=== PATIENT | female | born 1995 | race Caucasian/White ===

== ENCOUNTER 2017-10-03 09:55 | Outpatient (CLI) | payer OTHER | END 2017-10-03 09:56 | disposition home or self-care (01) | LOC: CTENTCT 09:55 | PROVIDERS: ATTEND Otolaryngology Plastic Surgery within the Head & Neck | DX: J32.9 Chronic sinusitis, unspecified (principal) | CPT/HCPCS: 70486 ==

== ENCOUNTER 2017-11-06 09:00 | Day surgery (SDC) | payer OTHER ==
[2017-11-05 11:59] VITALS: BMI 21.8
[2017-11-06] MEDS ORDERED: Oxymetazoline HCl 0.05% ( 15 ML ) ONE ×2 (09:23→09:51)
[2017-11-06] MEDS ORDERED: Scopolamine 1.5 mg/72 hour Patch ONE (09:23)
[2017-11-06] MEDS ORDERED: Midazolam HCl 2 mg/2 ml Vial ONE ×2 (09:23→10:09)
[2017-11-06 09:32] LABS: Hematocrit 44.7 % (36.0-47.0)
[2017-11-06] MEDS ORDERED: Bacitracin Zinc Ointment 30 gm TUBE ONE (09:51)
[2017-11-06] MEDS ORDERED: Lidocaine 1% w/Epinephrine 1:200K 30 ML VIAL ONE (09:51)
[2017-11-06] MEDS ORDERED: Fentanyl 100 MCG/2 ML VIAL ONE (10:09)
[2017-11-06] MEDS ORDERED: methylPREDNISolone Acetate 40 mg/ml Vial ONE (10:30)
[2017-11-06] MEDS ORDERED: Ketorolac Tromethamine 30 MG/ML VIAL ONE (11:37)
--- NOTE | 2017-11-06 12:53 | OP ---
DATE OF PROCEDURE: 11/06/2017 PREOPERATIVE DIAGNOSES: 1. Chronic rhinosinusitis. 2. Bilateral middle turbinate dinah bullosa. 3. Bilateral inferior turbinate hypertrophy. 4. Chronic adenotonsillitis. 5. Adenotonsillar hypertrophy. POSTOPERATIVE DIAGNOSES: 1. Chronic rhinosinusitis. 2. Bilateral middle turbinate dinah bullosa. 3. Bilateral inferior turbinate hypertrophy. 4. Chronic adenotonsillitis. 5. Adenotonsillar hypertrophy. PROCEDURES PERFORMED: 1. Bilateral endoscopic sinus surgery, total ethmoidectomies. 2. Bilateral endoscopic sinus surgery, maxillary antrostomies. 3. Bilateral endoscopic sinus surgery, frontal sinusotomies. 4. Bilateral middle turbinate endoscopic resection of dinah bullosa. 5. Bilateral inferior turbinate submucosal resection. 6. Tonsillectomy and adenoidectomy. SURGEON: Dr. Hayden Ch. ESTIMATED BLOOD LOSS: 50 mL. COMPLICATIONS: None. ANESTHESIA: GETA. PROCEDURE IN DETAIL: Tonsillectomy and adenoidectomy: After consent was obtained, the patient was i dentified, brought to the operating room, and placed on the operating table in the supine position. General endotracheal anesthesia and intravenous access was obtained and we proceeded with positioning the patient for oropharyngeal surgery. Oropharyngeal exposure was obtained with a Ramo-Nirav mouth gag after a head drape was placed and secured with a towel clip. The Ramo-Nirav mouth gag was then suspended from the Churchill tray and palatal elevation was achieved with a red rubber catheter. The rig ht tonsil was addressed first. We used a curved Allis to grasp the tonsil and retract it medially as an anterior pillar incision was made. The retrotonsillar fascial plane was then established and tessa nt dissection was performed with the suction cautery. Blood vessels were anticipated, identified, an d cauterized as they were encountered. Ultimately, dissection was carried to the posterior tonsillar pillar mucosa which was incised hemostatically, as well as the base of tongue connection. The tonsi l was then passed off as a specimen and bleeding points within the tonsillar bed were cauterized unde r direct visualization. We subsequently turned our attention to the contralateral side, where using a similar technique, a near identical procedure was performed. Again, the tonsil was grasped and retr acted medially with a curved Allis. The retrotonsillar fascial plane was established and while the a nterior pillar was retracted medially, the hemostatic blunt dissection of the tonsil with a suction c autery was performed with blood vessels anticipated, identified, and cauterized as they were encount ered. Again, dissection continued to the base of tongue and posterior tonsillar pillar mucosa which was incised in a hemostatic fashion. The tonsillar beds were then carefully inspected and bleeding p oints were identified and cauterized with a suction cautery. After this portion of the procedure, he mostasis was completely obtained. Under direct mirror visualization, we visualized the adenoid pad. Under direct mirror visualization, we removed the bulk of the adenoid tissue with the adenoid curett e. We then packed the nasopharynx for an appropriate period of time with Niels-Synephrine saturated to nsillar sponges. After a period of observation, we removed the pack. Under indirect mirror visualiz ation, we obtained hemostasis and vaporization of residual adenoid tissue with electrocautery. The p atient's oral cavity was copiously irrigated with iced saline and subsequently suctioned. After comp letion of the procedure, the nasal cavity and oropharynx were irrigated and suctioned as were the gas tric contents. The patient was then awakened and transferred to the recovery room where the patient remained in stable condition prior to discharge to Day Stay. Following this, the patient was placed in the beach chair position. Afrin pledgets were removed from the nasal cavity as the patient was prepped and draped for standard nasal procedure. Following this , 1% lidocaine with 1:100,000 epinephrine was injected into the inferior turbinates, the middle turbi nates and the lateral nasal wall. Following this, the sickle knife was used to make a vertical incis ion in the middle turbinates bilaterally and the lateral wall of the dinah bullosa was removed using the straight Blakesley forceps. The uncinate process was then identified and was anteriorly fractur ed with a ball-ended probe. The microdebrider and upbiting Sara forceps were used to remove the uncinate bilaterally. Following this, the natural maxillary sinus ostia was probed and identified us ing the curved ball-ended probe. The natural maxillary ostia was then widened using the straight koffi rodebrider and straight Blakesley forceps. Following this, the ethmoidal bulla was identified and wa s punctured on its medial and inferior aspect with the microdebrider and was removed using the microd ebrider and the upbiting Blakesley forceps. Following this, the ground lamella was identified and wa s punctured into the posterior ethmoidal cells. Working from posterior to anterior, the ethmoidal ce lls were opened in a mucosal-sparing technique. Following this, the 45-degree scope and the upbiting 40-degree microdebrider blade were used to further open the frontal sinus ostia anteriorly and later ally using the curved microdebrider. Following this, the nasal cavity was irrigated. MeroPacks were placed within in the middle meatus. The inferior turbinates were then punctured with the submucosal microdebrider and submucosal resection was performed at the anterior and inferior portions of the in ferior turbinates bilaterally. The patient tolerated the procedure well.
[2017-11-06] MEDS ORDERED: Lidocaine 1% PF 5 ML VIAL ONE (13:59)
[2017-11-06] MEDS ORDERED: Dexamethasone 20 MG/5 ML VIAL ONE (13:59)
[2017-11-06] MEDS ORDERED: ePHEDrine/0.9% NaCl/PF SYRINGE 50 mg/10 ml ONE (13:59)
[2017-11-06] MEDS ORDERED: Propofol 200 MG/20 ML VIAL ONE (13:59)
[2017-11-06] MEDS ORDERED: Ondansetron HCl/PF 4 MG/2 ML Vial ONE (13:59)
[2017-11-06] MEDS ORDERED: Succinylcholine Chloride 20 MG/ML 10 ml SYRINGE FS ONE (13:59)
== END 2017-11-06 13:18 | disposition home or self-care (01) ==
LOC: SDC 09:00
PROVIDERS: ATTEND Otolaryngology Plastic Surgery within the Head & Neck
PROC: 09BL8ZZ Excision of Nasal Turbinate, Via Natural or Artificial Opening Endoscopic (ICD-10-PCS; principal; 2017-11-06)
PROC: 09TU8ZZ Resection of Right Ethmoid Sinus, Via Natural or Artificial Opening Endoscopic (ICD-10-PCS; principal; 2017-11-06)
PROC: 0CTPXZZ Resection of Tonsils, External Approach (ICD-10-PCS; principal; 2017-11-06)
PROC: 09TV8ZZ Resection of Left Ethmoid Sinus, Via Natural or Artificial Opening Endoscopic (ICD-10-PCS; principal; 2017-11-06)
PROC: 0CTQ0ZZ Resection of Adenoids, Open Approach (ICD-10-PCS; principal; 2017-11-06)
PROC: 099Q8ZZ Drainage of Right Maxillary Sinus, Via Natural or Artificial Opening Endoscopic (ICD-10-PCS; principal; 2017-11-06)
PROC: 09JY8ZZ Inspection of Sinus, Via Natural or Artificial Opening Endoscopic (ICD-10-PCS; principal; 2017-11-06)
PROC: 099R8ZZ Drainage of Left Maxillary Sinus, Via Natural or Artificial Opening Endoscopic (ICD-10-PCS; principal; 2017-11-06)
DX: J35.1 Hypertrophy of tonsils (principal); J32.9 Chronic sinusitis, unspecified; J34.89 Other specified disorders of nose and nasal sinuses; J34.3 Hypertrophy of nasal turbinates; J30.9 Allergic rhinitis, unspecified; J45.909 Unspecified asthma, uncomplicated
CPT/HCPCS: 36415; 84703; 85014; 88304; 96374; J1030; J1100; J1885; J2001; J2250; J2405; J2704; J3010